=== PATIENT | female | born 1990 | race Caucasian/White ===

== ENCOUNTER 2017-02-11 00:47 | Emergency (ER) | payer MEDICAID ==
[2017-02-11] MEDS ORDERED: Ketorolac 30 MG/ML SDV IVPUSH ONE (00:50)
[2017-02-11] MEDS ORDERED: Sodium Chloride 0.9% 1,000 ML IV ONE (00:50)
[2017-02-11] MEDS ORDERED: Sodium Chloride 0.9% 10 ML Syringe FLUSH PRN (00:50)
[2017-02-11] MEDS ORDERED: Sodium Chloride 0.9% 2.5 ML Syringe FLUSH PRN (00:50)
--- NOTE | 2017-02-11 00:53 | EDM.PDOC ---
ED HPI GENERAL MEDICAL PROBLEM - General Stated Complaint: RT SIDE ABDOMINAL PAIN Time Seen by Provider: 02/11/17 00:49 Source of Information: Reports: Patient History Limitations: Reports: No Limitations - History of Present Illness INITIAL COMMENTS - FREE TEXT/NARRATIVE: HISTORY AND PHYSICAL: History of present illness: [26-year-old female with no significant past medical history including no prior abdominal problems or surgeries now presents to the emergency department complaining of right upper quadrant abdominal pain. Patient denies possibility of as she's had a recent normal. And is anticipating her next period soon with normal timing. She states she had sudden onset of right upper quadrant pain under her ribs tonight pain waxes and wanes. She has nausea but no vomiting. No fevers chills sweats or shaking chills. No right lower quadrant pain. No vaginal discharge or bleeding. She has no diarrhea and reports normal bowel bladder habits. She has had no prior workup of her gallbladder and no known history for problems thereof] Review of systems: As per history of present illness and below otherwise all systems reviewed and negative. Past medical history: As per history of present illness and as reviewed below otherwise noncontributory. Surgical history: As per history of present illness and as reviewed below otherwise noncontributory. Social history: No reported history of drug or alcohol abuse. Family history: As per history of present illness and as reviewed below otherwise noncontributory. Physical exam: HEENT: Atraumatic, normocephalic, pupils reactive, negative for conjunctival pallor or scleral icterus, mucous membranes moist, throat clear, neck supple, nontender, trachea midline. Lungs: Clear to auscultation, breath sounds equal bilaterally, chest nontender. Heart: S1S2, regular, negative for clicks, rubs, or JVD. Abdomen: Soft, nondistended, positive right upper quadrant tenderness no guarding or rebound. Negative for masses or hepatosplenomegaly. Negative for costovertebral tenderness. Normal bowel sounds Pelvis: Stable nontender. Genitourinary: Deferred. Rectal: Deferred. Extremities: Atraumatic, negative for cords or calf pain. Neurovascular unremarkable. Neuro: Awake, alert, oriented. Cranial nerves grossly unremarkable. Cerebellum unremarkable. Motor and sensory unremarkable throughout. Exam nonfocal. Diagnostics: [Ultrasound of the right upper quadrant pending as well as full labs.] CT of the abdomen and pelvis unremarkable Therapeutics: [Anti-inflammatory medication and anxiety lytic given IV with good effect] Impression: [Right upper quadrant abdominal pain] Plan: [Signs and symptoms consistent with suspected gallbladder disease. Full workup pending including ultrasound labs. Patient with clearly contributory anxiety component relieved with Ativan and pain improved with NSAIDs.] Definitive disposition and diagnosis as appropriate pending reevaluation and review of above. Right Upper Abdominal Pain Score (Numeric/FACES): 10 - Related Data Allergies Allergy/AdvReac Type Severity Reaction Status Date / Time No Known Allergies Allergy Verified 02/11/17 01:05 Home Meds: Home Meds . [No Known Home Meds] 02/11/17 [History] ED ROS GENERAL - Review of Systems Review Of Systems: See Below (History of present illness) ED EXAM, GENERAL - Physical Exam Exam: See Below (History of present illness) Course - Vital Signs Last Recorded V/S: Last Vital Signs Temp 36.4 C 02/11/17 04:40 Pulse 88 02/11/17 04:40 Resp 16 02/11/17 04:40 BP 96/55 L 02/11/17 04:40 Pulse Ox 98 02/11/17 04:40 - Orders/Labs/Meds Orders: Active Orders 24 hr Category Date Time Status Abdomen Pelvis w wo Cont [CT] Stat Exams 02/11/17 03:13 Taken Gallbladder [Abdomen Ltd] [US] Stat Exams 02/11/17 01:07 Taken Sodium Chloride 0.9% [Normal Saline] 1,000 ml Med 02/11/17 03:45 Active IV ASDIRECTED Peripheral IV Insertion Adult [OM.PC] Stat Oth 02/11/17 00:50 Ordered Medication Orders Sodium Chloride (Normal Saline) 1,000 mls @ 999 mls/hr IV ASDIRECTED OLIVA Last Admin: 02/11/17 03:51 Dose: 999 mls/hr Labs: Laboratory Tests 02/11/17 02/11/17 02/11/17 Range/Units 01:10 01:10 02:20 WBC 13.77 H (4.0-11.0) K/uL RBC 4.77 (4.30-5.90) M/uL Hgb 14.5 (12.0-16.0) g/dL Hct 42.2 (36.0-46.0) % MCV 88.5 (80.0-98.0) fL MCH 30.4 (27.0-32.0) pg MCHC 34.4 (31.0-37.0) g/dL RDW Std Deviation 38.2 (28.0-62.0) fl RDW Coeff of Grazyna 12 (11.0-15.0) % Plt Count 305 (150-400) K/uL MPV 9.30 (7.40-12.00) fL Neut % (Auto) 72.2 (48.0-80.0) % Lymph % (Auto) 17.8 (16.0-40.0) % [place] % (Auto) 9.7 (0.0-15.0) % Eos % (Auto) 0.2 (0.0-7.0) % Baso % (Auto) 0.1 (0.0-1.5) % Neut # (Auto) 9.9 H (1.4-5.7) K/uL Lymph # (Auto) 2.5 H (0.6-2.4) K/uL [place] # (Auto) 1.3 H (0.0-0.8) K/uL Eos # (Auto) 0.0 (0.0-0.7) K/uL Baso # (Auto) 0.0 (0.0-0.1) K/uL Sodium 140 (136-146) mmol/L Potassium 4.0 (3.5-5.1) mmol/L Chloride 105 (98-110) mmol/L Carbon Dioxide 24 (21-31) mmol/L BUN 10 (6.0-23.0) mg/dL Creatinine 0.8 (0.6-1.5) mg/dL Est Cr Clr Drug Dosing 89.70 mL/min Estimated GFR (MDRD) > 60.0 ml/min Glucose 113 H (60-110) mg/dL Calcium 9.5 (8.8-10.8) mg/dL Total Bilirubin 0.3 (0.1-1.5) mg/dL AST 28 (5-40) IU/L ALT 33 (8-54) IU/L Alkaline Phosphatase 67 (40-150) Total Protein 7.7 (6.0-8.0) g/dL Albumin 4.5 (3.5-5.0) g/dL Globulin 3.2 (2.0-3.5) g/dL Albumin/Globulin Ratio 1.4 (1.3-2.8) Lipase 26 (7-80) U/L Urine Color Urine Appearance Urine pH (5.0-8.0) Ur Specific [place] (1.001-1.035) Urine Protein (NEGATIVE) mg/dL Urine Glucose (UA) (NEGATIVE) mg/dL Urine Ketones (NEGATIVE) mg/dL Urine Occult Blood (NEGATIVE) Urine Nitrite (NEGATIVE) Urine Bilirubin (NEGATIVE) Urine Urobilinogen (<2.0) EU/dL Ur Leukocyte Esterase (NEGATIVE) Urine RBC (0-2/HPF) Urine WBC (0-5/HPF) Ur Epithelial Cells (NONE-FEW) Urine Bacteria (NEGATIVE) Urine Mucus (NONE-MOD) Urine HCG, Qual NEGATIVE (NEGATIVE) 02/11/17 Range/Units 02:20 WBC (4.0-11.0) K/uL RBC (4.30-5.90) M/uL Hgb (12.0-16.0) g/dL Hct (36.0-46.0) % MCV (80.0-98.0) fL MCH (27.0-32.0) pg MCHC (31.0-37.0) g/dL RDW Std Deviation (28.0-62.0) fl RDW Coeff of Grazyna (11.0-15.0) % Plt Count (150-400) K/uL MPV (7.40-12.00) fL Neut % (Auto) (48.0-80.0) % Lymph % (Auto) (16.0-40.0) % [place] % (Auto) (0.0-15.0) % Eos % (Auto) (0.0-7.0) % Baso % (Auto) (0.0-1.5) % Neut # (Auto) (1.4-5.7) K/uL Lymph # (Auto) (0.6-2.4) K/uL [place] # (Auto) (0.0-0.8) K/uL Eos # (Auto) (0.0-0.7) K/uL Baso # (Auto) (0.0-0.1) K/uL Sodium (136-146) mmol/L Potassium (3.5-5.1) mmol/L Chloride (98-110) mmol/L Carbon Dioxide (21-31) mmol/L BUN (6.0-23.0) mg/dL Creatinine (0.6-1.5) mg/dL Est Cr Clr Drug Dosing mL/min Estimated GFR (MDRD) ml/min Glucose (60-110) mg/dL Calcium (8.8-10.8) mg/dL Total Bilirubin (0.1-1.5) mg/dL AST (5-40) IU/L ALT (8-54) IU/L Alkaline Phosphatase (40-150) Total Protein (6.0-8.0) g/dL Albumin (3.5-5.0) g/dL Globulin (2.0-3.5) g/dL Albumin/Globulin Ratio (1.3-2.8) Lipase (7-80) U/L Urine Color YELLOW Urine Appearance CLEAR Urine pH 7.0 (5.0-8.0) Ur Specific [place] 1.010 (1.001-1.035) Urine Protein NEGATIVE (NEGATIVE) mg/dL Urine Glucose (UA) NEGATIVE (NEGATIVE) mg/dL Urine Ketones NEGATIVE (NEGATIVE) mg/dL Urine Occult Blood TRACE-INTACT (NEGATIVE) Urine Nitrite NEGATIVE (NEGATIVE) Urine Bilirubin NEGATIVE (NEGATIVE) Urine Urobilinogen 0.2 (<2.0) EU/dL Ur Leukocyte Esterase SMALL (NEGATIVE) Urine RBC 0-3 (0-2/HPF) Urine WBC 4-6 (0-5/HPF) Ur Epithelial Cells FEW (NONE-FEW) Urine Bacteria RARE (NEGATIVE) Urine Mucus LIGHT (NONE-MOD) Urine HCG, Qual (NEGATIVE) Meds: Medications Generic Name Dose Route Start Last Admin Trade Name Freq PRN Reason Stop Dose Admin Sodium Chloride 1,000 mls @ 999 mls/hr 02/11/17 03:45 02/11/17 03:51 Normal Saline IV 999 mls/hr ASDIRECTED OLIVA Administration Discontinued Medications Generic Name Dose Route Start Last Admin Trade Name Freq PRN Reason Stop Dose Admin Sodium Chloride 1,000 mls @ 999 mls/hr 02/11/17 00:50 02/11/17 01:20 Normal Saline IV 02/11/17 01:50 999 mls/hr .Bolus ONE Administration Iopamidol 75 ml 02/11/17 03:50 02/11/17 03:51 Isovue-370 (76%) IVPUSH 02/11/17 03:51 75 ml ONETIME STA Administration Ketorolac Tromethamine 30 mg 02/11/17 00:50 02/11/17 01:21 Toradol IVPUSH 02/11/17 00:51 30 mg ONETIME ONE Administration Lorazepam 1 mg 02/11/17 01:06 02/11/17 01:22 Ativan IVPUSH 02/11/17 01:07 1 mg ONETIME ONE Administration Sodium Chloride 2.5 ml 02/11/17 00:50 Saline Flush FLUSH ASDIRECTED PRN Keep Vein Open Sodium Chloride 10 ml 02/11/17 00:50 Saline Flush FLUSH ASDIRECTED PRN Keep Vein Open Departure - Departure Time of Disposition: 05:09 Disposition: Home, Self-Care 01 Condition: good Clinical Impression: Abdominal pain, Leukocytosis - Discharge Information Instructions: Abdominal Pain, Adult, [id number] Referrals: PCP,None [Primary Care Provider] - Clay Vanegas MD [Physician] - Additional Instructions: Your workup today did not a clear reason for your right upper quadrant abdominal pain. As you are tender were your gallbladder is, it's possible that you know the ultrasound did not visualize any stones , and your CT scan was normal, however you could still have a problem with your gallbladder and your bile collecting system. White blood cell count was also slightly elevated. He you do not need to be admitted to the hospital at this time, however it is appropriate for you to follow-up with Dr. Clay Vanegas, our surgeon on-call, for reevaluation and further workup and treatment including possible ERCP as needed to rule out occult gallbladder disease. Take Motrin and Tylenol as needed for pain and follow-up with Dr. Vanegas in his office. Return immediately for new severe or worsening symptoms, specifically for fevers and worsening abdominal pain. - My Orders Last 24 Hours: My Active Orders 02/11/17 00:50 Peripheral IV Insertion Adult [OM.PC] Stat 02/11/17 01:07 Gallbladder [Abdomen Ltd] [US] Stat 02/11/17 03:13 Abdomen Pelvis w wo Cont [CT] Stat 02/11/17 03:45 Sodium Chloride 0.9% [Normal Saline] 1,000 ml IV ASDIRECTED - Assessment/Plan Last 24 Hours: My Active Orders 02/11/17 00:50 Peripheral IV Insertion Adult [OM.PC] Stat 02/11/17 01:07 Gallbladder [Abdomen Ltd] [US] Stat 02/11/17 03:13 Abdomen Pelvis w wo Cont [CT] Stat 02/11/17 03:45 Sodium Chloride 0.9% [Normal Saline] 1,000 ml IV ASDIRECTED
[2017-02-11] MEDS ORDERED: LORazepam 2 MG/ML MDV IVPUSH ONE (01:06)
[2017-02-11 01:38] LABS: CHLORIDE,CL 105 mmol/L (98-110); SODIUM,NA 140 mmol/L (136-146)
[2017-02-11] MEDS ORDERED: Sodium Chloride 0.9% 1,000 ML IV SCH (03:45)
[2017-02-11] MEDS ORDERED: Iopamidol 755 Mg/ML 100 ML Bottle IVPUSH STA (03:50)
[2017-02-11 05:55] VITALS: BP 100/50
--- NOTE | 2017-02-11 11:16 | US ---
EXAM DATE: 02/11/17 PATIENT'S AGE: 26 Patient: KIMBERLYN LIANG Facility: [place], [place] Site . Site : 1992 Study: US Abdomen [id number]/9/2017 2:22:40 AM Ordering Physician: Thiago Moreno Final Report: INDICATION: Right upper quadrant pain. TECHNIQUE: Ultrasound abdomen limited. Sonographic images of the right upper quadrant were obtained using hyman-scale and color Doppler images. COMPARISON: None. FINDINGS: Liver: Normal in size and echotexture. No masses. No intrahepatic biliary dilatation. Gallbladder: Gallbladder is partially contracted. Positive sonographic Suazo`s sign. No shadowing gallstones or pericholecystic fluid. Common bile duct: 4 mm. Pancreas: Unremarkable. Right kidney: 10.8 cm. Normal echotexture and cortex. No masses, stones, or hydronephrosis. Vasculature: Abdominal aorta and IVC not evaluated. IMPRESSION: 1. Partially contracted gallbladder. No cholelithiasis or abnormal biliary dilatation. Positive sonographic Suazo`s sign with no evidence of abnormal gallbladder wall thickening or pericholecystic fluid. 2. No right hydronephrosis or renal calculi. Dictated by Braydon Mtz MD @ 02/11/2017 2:47:57 AM Dictated by: Braydon Mtz MD @ 02/11/2017 02:48:02 (Electronic Signature) Report Signed by Proxy. [facility] FACILITY[facility]acho
--- NOTE | 2017-02-11 11:17 | CT ---
EXAM DATE: 02/11/17 PATIENT'S AGE: 26 Patient: KIMBERLYN LIANG Facility: [place], [place] Site . Site : 1990 Study: CT Abdomen/Pelvis W/ and W/O Cont [id number] 3:54:08 AM Ordering Physician: Thiago Moreno Final Report: INDICATION: Right upper quadrant abdominal pain. TECHNIQUE: CT abdomen and pelvis acquired without and with IV contrast. Coronal and sagittal reformats were obtained. IV contrast: Isovue 370 75 mL COMPARISON: No prior CT study. Abdominal ultrasound earlier on 02/11/2017. 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 Lower chest: Unremarkable. Liver: Unremarkable. Spleen: Unremarkable. Pancreas: Unremarkable. Gallbladder and bile ducts: No radiopaque gallstones. No acute inflammatory changes in the gallbladder fossa. Bile ducts are normal in caliber. Kidneys: No renal or ureteral calculi. Symmetric renal enhancement. No hydronephrosis or suspicious mass. Adrenal glands: Unremarkable. GI tract: Unremarkable. The appendix is normal in appearance and size. Vascular: Unremarkable. Lymph nodes: Unremarkable. Miscellaneous: Unremarkable. No pneumoperitoneum is seen. No significant ascites is noted. Pelvic Organs: Unremarkable. Bones: Unremarkable for age. IMPRESSION: 1. Negative CT of the abdomen and pelvis without and with IV contrast. Normal appendix. No renal or ureteral calculi. 2. Negative CT appearance of the gallbladder. No abnormal biliary dilatation. Dictated by Braydon Mtz MD @ 02/11/2017 4:22:32 AM Dictated by: Braydon Mtz MD @ 02/11/2017 04:22:49 (Electronic Signature) Report Signed by Proxy. [facility]
== END 2017-02-11 05:26 | disposition home or self-care (01) ==
LOC: MW.ED 00:47
DX: R10.11 Right upper quadrant pain (principal)
CPT/HCPCS: 36415; 74178; 76705; 80053; 81001; 81025; 83690; 85025; 96361; 96374; 96375; 99284; J1885; J2060; J7040; Q9967

== ENCOUNTER 2017-02-13 06:30 | Emergency (ER) | payer MEDICAID ==
[2017-02-13] MEDS ORDERED: LORazepam 2 MG/ML MDV IVPUSH ONE (06:43)
[2017-02-13] MEDS ORDERED: Sodium Chloride 0.9% 1,000 ML IV SCH (06:45)
[2017-02-13] MEDS ORDERED: Morphine 2 MG/ML Syringe IVPUSH ONE (07:08)
[2017-02-13 07:11] LABS: CHLORIDE,CL 106 mmol/L (98-110); SODIUM,NA 137 mmol/L (136-146)
--- NOTE | 2017-02-13 07:20 | EDM.PDOC ---
ED HPI GENERAL MEDICAL PROBLEM - General Chief Complaint: Abdominal Pain Stated Complaint: STOMACH PAIN Time Seen by Provider: 02/13/17 06:57 Source of Information: Reports: Patient History Limitations: Reports: No Limitations - History of Present Illness INITIAL COMMENTS - FREE TEXT/NARRATIVE: History of present illness: []Patient started having right upper quadrant pain 4 days ago and was seen in the ED 2 days ago. Her pain is constant pressure and cramping that waxes and she noticed worsened after eating pizza. Patient has brothers with gallbladder disease. She denies any fevers but has chills, denies any vomiting, diarrhea. She also complains of chest pain shortness of breath on exertion and neck pain with numbness going down her right arm when this began, however has now subsided. Review of systems: As per history of present illness and below otherwise all systems reviewed and negative. Past medical history: As per history of present illness and as reviewed below otherwise noncontributory. Surgical history: As per history of present illness and as reviewed below otherwise noncontributory. Social history: No reported history of drug or alcohol abuse. Family history: As per history of present illness and as reviewed below otherwise noncontributory. Physical exam: General: Well developed, well nourished patient lays in bed continually moaning HEENT: Atraumatic, normocephalic, pupils reactive, negative for conjunctival pallor or scleral icterus, mucous membranes moist, throat clear, neck supple, tender to palpation of her trapezius muscles bilaterally, trachea midline. Patient talks with her jaw locked when she talks, however has full range of motion of her jaw on exam. Lungs: Clear to auscultation, breath sounds equal bilaterally, chest nontender. No rhonchi Heart: S1S2, regular, negative for clicks, rubs, or JVD. Abdomen: NABS, Soft, nondistended, right upper quadrant tenderness with voluntary guarding, without rebound. Negative for masses or hepatosplenomegaly. Negative for costovertebral tenderness. Pelvis: Stable nontender. Genitourinary: Deferred. Rectal: Deferred. Extremities: Atraumatic, negative for cords or calf pain. Neurovascular unremarkable. Neuro: Awake, alert, oriented. Cranial nerves II through XII unremarkable. Cerebellum unremarkable. Motor and sensory unremarkable throughout. Exam nonfocal. Diagnostics: []CBC repeated in improved from 2 days ago, chemistries normal, chest x-ray was read as normal, Therapeutics: []Patient hydrated was initially given Ativan for anxiety, morphine without relief of pain. Levsin and Pepcid alleviated all her pain and she was able to sleep while awaiting results and IV fluids. Impression: []Right upper quadrant pain unknown etiology, patient has a good history for gallbladder disease however ultrasound shows no gallstones or signs of cholecystitis that was done 2 days ago. Patient's labs were repeated and are improved today. Given patient's multiple body complaints I agree with Dr. Das that there is a component of anxiety however all bladder disease should be ruled out with further studies. Plan: []Patient has appointment with Dr. Vanegas in 2 days for further evaluation. Definitive disposition and diagnosis as appropriate pending reevaluation and review of above. 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 Musculoskeletal History: Reports: None Neurological History: Reports: None Psychiatric History: Reports: None Endocrine/Metabolic History: Reports: None Hematologic History: Reports: None Oncologic (Cancer) History: Reports: None Dermatologic History: Reports: None - Infectious Disease History Infectious Disease History: Reports: Chicken Pox - Past Surgical History Head Surgeries/Procedures: Reports: None HEENT Surgical History: Reports: None Cardiovascular Surgical History: Reports: None GI Surgical History: Reports: None Female Surgical History: Reports: Other (See Below) Other Female Surgeries/Procedures: right breast lumpectomy Social & Family History - Family History Family Medical History: Noncontributory - Tobacco Use Smoking Status *Q: Never Smoker - Caffeine Use Caffeine Use: Reports: Soda - Recreational Drug Use Recreational Drug Use: No ED ROS GENERAL - Review of Systems Review Of Systems: See Below (See history of present illness) ED EXAM, GI/ABD - Physical Exam Exam: See Below (See history of present illness) Course - Vital Signs Last Recorded V/S: Last Vital Signs Temp 36.6 C 02/13/17 06:32 Pulse 89 02/13/17 08:00 Resp 16 02/13/17 08:00 BP 105/62 02/13/17 08:00 Pulse Ox 98 02/13/17 08:00 - Orders/Labs/Meds Orders: Active Orders 24 hr Category Date Time Status Chest 2V [CR] Stat Exams 02/13/17 07:12 Taken Sodium Chloride 0.9% [Normal Saline] 1,000 ml Med 02/13/17 06:45 Active IV ASDIRECTED Medication Orders Sodium Chloride (Normal Saline) 1,000 mls @ 999 mls/hr IV ASDIRECTED OLIVA Last Admin: 02/13/17 06:49 Dose: 999 mls/hr Labs: Laboratory Tests 02/13/17 02/13/17 02/13/17 Range/Units 06:40 06:40 06:40 WBC 11.26 H (4.0-11.0) K/uL RBC 4.65 (4.30-5.90) M/uL Hgb 14.1 (12.0-16.0) g/dL Hct 41.2 (36.0-46.0) % MCV 88.6 (80.0-98.0) fL MCH 30.3 (27.0-32.0) pg MCHC 34.2 (31.0-37.0) g/dL RDW Std Deviation 39.4 (28.0-62.0) fl RDW Coeff of Grazyna 12 (11.0-15.0) % Plt Count 269 (150-400) K/uL MPV 9.30 (7.40-12.00) fL Neut % (Auto) 75.0 (48.0-80.0) % Lymph % (Auto) 16.0 (16.0-40.0) % [place] % (Auto) 8.7 (0.0-15.0) % Eos % (Auto) 0.2 (0.0-7.0) % Baso % (Auto) 0.1 (0.0-1.5) % Neut # (Auto) 8.5 H (1.4-5.7) K/uL Lymph # (Auto) 1.8 (0.6-2.4) K/uL Cam[place] # (Auto) 1.0 H (0.0-0.8) K/uL Eos # (Auto) 0.0 (0.0-0.7) K/uL Baso # (Auto) 0.0 (0.0-0.1) K/uL Nucleated RBC % 0.0 /100WBC Nucleated RBCs # 0 K/uL Sodium 137 (136-146) mmol/L Potassium 3.8 (3.5-5.1) mmol/L Chloride 106 (98-110) mmol/L Carbon Dioxide 22 (21-31) mmol/L BUN 9 (6.0-23.0) mg/dL Creatinine 0.7 (0.6-1.5) mg/dL Est Cr Clr Drug Dosing 89.01 mL/min Estimated GFR (MDRD) > 60.0 ml/min Glucose 101 (60-110) mg/dL Calcium 9.1 (8.8-10.8) mg/dL Total Bilirubin 0.6 (0.1-1.5) mg/dL AST 25 (5-40) IU/L ALT 33 (8-54) IU/L Alkaline Phosphatase 64 (40-150) Total Protein 7.4 (6.0-8.0) g/dL Albumin 4.3 (3.5-5.0) g/dL Globulin 3.1 (2.0-3.5) g/dL Albumin/Globulin Ratio 1.4 (1.3-2.8) Lipase 17 (7-80) U/L HCG, Qual NEGATIVE (NEG) Urine Color Urine Appearance Urine pH (5.0-8.0) Ur Specific [place] (1.001-1.035) Urine Protein (NEGATIVE) mg/dL Urine Glucose (UA) (NEGATIVE) mg/dL Urine Ketones (NEGATIVE) mg/dL Urine Occult Blood (NEGATIVE) Urine Nitrite (NEGATIVE) Urine Bilirubin (NEGATIVE) Urine Urobilinogen (<2.0) EU/dL Ur Leukocyte Esterase (NEGATIVE) Urine RBC (0-2/HPF) Urine WBC (0-5/HPF) Ur Epithelial Cells (NONE-FEW) Urine Bacteria (NEGATIVE) 02/13/17 Range/Units 07:54 WBC (4.0-11.0) K/uL RBC (4.30-5.90) M/uL Hgb (12.0-16.0) g/dL Hct (36.0-46.0) % MCV (80.0-98.0) fL MCH (27.0-32.0) pg MCHC (31.0-37.0) g/dL RDW Std Deviation (28.0-62.0) fl RDW Coeff of Grazyna (11.0-15.0) % Plt Count (150-400) K/uL MPV (7.40-12.00) fL Neut % (Auto) (48.0-80.0) % Lymph % (Auto) (16.0-40.0) % [place] % (Auto) (0.0-15.0) % Eos % (Auto) (0.0-7.0) % Baso % (Auto) (0.0-1.5) % Neut # (Auto) (1.4-5.7) K/uL Lymph # (Auto) (0.6-2.4) K/uL [place] # (Auto) (0.0-0.8) K/uL Eos # (Auto) (0.0-0.7) K/uL Baso # (Auto) (0.0-0.1) K/uL Nucleated RBC % /100WBC Nucleated RBCs # K/uL Sodium (136-146) mmol/L Potassium (3.5-5.1) mmol/L Chloride (98-110) mmol/L Carbon Dioxide (21-31) mmol/L BUN (6.0-23.0) mg/dL Creatinine (0.6-1.5) mg/dL Est Cr Clr Drug Dosing mL/min Estimated GFR (MDRD) ml/min Glucose (60-110) mg/dL Calcium (8.8-10.8) mg/dL Total Bilirubin (0.1-1.5) mg/dL AST (5-40) IU/L ALT (8-54) IU/L Alkaline Phosphatase (40-150) Total Protein (6.0-8.0) g/dL Albumin (3.5-5.0) g/dL Globulin (2.0-3.5) g/dL Albumin/Globulin Ratio (1.3-2.8) Lipase (7-80) U/L HCG, Qual (NEG) Urine Color YELLOW Urine Appearance SLT CLOUDY Urine pH 7.0 (5.0-8.0) Ur Specific [place] 1.010 (1.001-1.035) Urine Protein NEGATIVE (NEGATIVE) mg/dL Urine Glucose (UA) NEGATIVE (NEGATIVE) mg/dL Urine Ketones NEGATIVE (NEGATIVE) mg/dL Urine Occult Blood SMALL H (NEGATIVE) Urine Nitrite NEGATIVE (NEGATIVE) Urine Bilirubin NEGATIVE (NEGATIVE) Urine Urobilinogen 0.2 (<2.0) EU/dL Ur Leukocyte Esterase MODERATE (NEGATIVE) Urine RBC 2-4 (0-2/HPF) Urine WBC 20-25 (0-5/HPF) Ur Epithelial Cells RARE (NONE-FEW) Urine Bacteria FEW (NEGATIVE) Meds: Medications Generic Name Dose Route Start Last Admin Trade Name Freq PRN Reason Stop Dose Admin Sodium Chloride 1,000 mls @ 999 mls/hr 02/13/17 06:45 02/13/17 06:49 Normal Saline IV 999 mls/hr ASDIRECTED OLIVA Administration Discontinued Medications Generic Name Dose Route Start Last Admin Trade Name Freq PRN Reason Stop Dose Admin Famotidine 20 mg 02/13/17 08:06 02/13/17 08:26 Pepcid IVPUSH 02/13/17 08:07 20 mg ONETIME ONE Administration Hyoscyamine 0.125 mg 02/13/17 07:59 02/13/17 08:29 Hyomax-Sl SL 02/13/17 08:00 0.125 mg ONETIME ONE Administration Lorazepam 1 mg 02/13/17 06:43 02/13/17 06:49 Ativan IVPUSH 02/13/17 06:44 1 mg ONETIME ONE Administration Morphine Sulfate 2 mg 02/13/17 07:08 02/13/17 07:19 Morphine IVPUSH 02/13/17 07:09 2 mg ONETIME ONE Administration Departure - Departure Time of Disposition: 08:57 Disposition: Home, Self-Care 01 Condition: good Clinical Impression: Abdominal pain Qualifiers: Abdominal location: right upper quadrant Qualified Code(s): R10.11 - Right upper quadrant pain - Discharge Information Prescriptions: Hyoscyamine Sulfate [Levsin] 0.125 mg PO TID PRN #20 tablet PRN Reason: Pain Referrals: PCP,None [Primary Care Provider] - Forms: ED Department Discharge Additional Instructions: The following information is given to patients seen in the emergency department who are being discharged to home. This information is to outline your options for follow-up care. We provide all patients seen in our emergency department with a follow-up referral. The need for follow-up, as well as the timing and circumstances, are variable depending upon the specifics of your emergency department visit. If you don't have a primary care physician on staff, we will provide you with a referral. We always advise you to contact your personal physician following an emergency department visit to inform them of the circumstance of the visit and for follow-up with them and/or the need for any referrals to a consulting specialist. The emergency department will also refer you to a specialist when appropriate. This referral assures that you have the opportunity for follow-up care with a specialist. All of these measure are taken in an effort to provide you with optimal care, which includes your follow-up. Under all circumstances we always encourage you to contact your private physician who remains a resource for coordinating your care. When calling for follow-up care, please make the office aware that this follow-up is from your recent emergency room visit. If for any reason you are refused follow-up, please contact the [facility] Emergency Department at and asked to speak to the emergency department charge nurse. Take Levsin for pain as directed. Avoid fatty foods. Return if any fevers occur. Follow-up with Dr. Vanegas as scheduled. [facility] - General Surgery Professional Building [address] [place] [address], [address] [place] [address] - My Orders Last 24 Hours: My Active Orders 02/13/17 07:12 Chest 2V [CR] Stat - Assessment/Plan Last 24 Hours: My Active Orders 02/13/17 07:12 Chest 2V [CR] Stat
[2017-02-13] MEDS ORDERED: Hyoscyamine 0.125 MG Tab.SL SL ONE (07:59)
[2017-02-13] MEDS ORDERED: Famotidine 20 MG/2 ML SDV IVPUSH ONE (08:06)
[2017-02-13 09:49] VITALS: BP 102/60
--- NOTE | 2017-02-14 11:13 | CR ---
EXAM DATE: 02/13/17 PATIENT'S AGE: 26 Patient: KIMBERLYN LIANG Facility: [place], [place] Site . Site : 1990 Study: XRay Chest [id number]/11/2017 7:39:22 AM Ordering Physician: Jimi Augustin Final Report: INDICATION: RUQ Pain, SOB INDICATION: Shortness of breath. Right upper quadrant abdominal pain. TECHNIQUE: Chest 2 views. COMPARISON: None FINDINGS: Cardiovascular and mediastinum: Heart size and vasculature are normal in caliber and appearance. Mediastinum is within normal limits. Lungs and pleural spaces: Lungs are clear. No sign of infiltrate or mass. No sign of pleural effusion. No pneumothorax. Bones and soft tissues: No significant findings. IMPRESSION: Lungs are clear. Dictated by Valdez Guo MD @ 02/13/2017 7:43:12 AM Dictated by: Valdez Guo MD @ 02/13/2017 07:43:19 (Electronic Signature) Report Signed by Proxy. TOMASZ
== END 2017-02-13 09:40 | disposition home or self-care (01) ==
LOC: MW.ED 06:30
DX: R10.11 Right upper quadrant pain (principal); Z98.890 Other specified postprocedural states
CPT/HCPCS: 71020; 80053; 81001; 83690; 84703; 85025; 96361; 96374; 96375; 99284; A9270; J2060; J2270; J7040

== ENCOUNTER 2017-03-09 08:07 | Day surgery (SDC) | payer MEDICAID ==
[~2017-03-09 08:07] MED LIST: Bupivacaine 0.5% 30 ML SDV ONE; Dexamethasone 4 MG/ML 5 ML MDV ONE; HYDROmorphone 2 MG/ML Syringe ONE; Lactated Ringers 1,000 ML IV SCH; Lidocaine 2% 5 ML SDV ONE; Midazolam 1 MG/ML 2 ML SDV ONE; Ondansetron 4 MG/2 ML SDV ONE; Propofol 200 MG/20 ML SDV ONE; Rocuronium 10 MG/ML 10 ML Syringe ONE; Scopolamine 1.5 MG Transdermal Patch TOP ONE; Sodium Chloride 0.9% 10 ML Syringe FLUSH PRN; Sodium Chloride 0.9% 2.5 ML Syringe FLUSH PRN; ceFAZolin 2 GM in Premix Bag 1 BAG IV ONE; fentaNYL 250 MCG/5 ML SDV ONE
--- NOTE | 2017-03-09 08:37 | PCM.PREANE ---
Preanesthetic Assessment - Anesthesia/Transfusion/Family Hx Anesthesia History: Prior Anesthesia Without Reaction Family History of Anesthesia Reaction: No Transfusion History: No Prior Transfusion(s) - Review of Systems General: No Symptoms Pulmonary: No Symptoms Cardiovascular: No Symptoms Gastrointestinal: No symptoms Neurological: No Symptoms Other: Reports: None - Physical Assessment NPO Status Date: 03/08/17 Height: 1.52 m Weight: 60.781 kg ASA Class: 1 Mental Status: Alert & Oriented x3 Airway Class: Mallampati = 1 Dentition: Reports: Normal Dentition ROM/Head Extension: Full Lungs: Clear to auscultation, Normal respiratory effort Cardiovascular: Regular Rate, Regular Rhythm - Lab Values: Laboratory Last Values Urine HCG, Qual NEGATIVE (NEGATIVE) 03/09/17 08:13 - Allergies Allergies/Adverse Reactions: Allergies Allergy/AdvReac Type Severity Reaction Status Date / Time No Known Allergies Allergy Verified 02/13/17 06:32 - Anesthesia Plan Pre-Op Medication Ordered: Other (scop) - Acknowledgements Anesthesia Type Planned: General Anesthesia Pt an Appropriate Candidate for the Planned Anesthesia: Yes Alternatives and Risks of Anesthesia Discussed w Pt/Guardian: Yes Pt/Guardian Understands and Agrees with Anesthesia Plan: Yes PreAnesthesia Questionnaire - Past Health History Medical/Surgical History: Denies Medical/Surgical History HEENT History: Reports: None Cardiovascular History: Reports: None Respiratory History: Reports: None Gastrointestinal History: Reports: Cholelithiasis, Other (See Below) Other Gastrointestinal History: RUQ pain Genitourinary History: Reports: None 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: Musculoskeletal History: Reports: None Neurological History: Reports: Migraines Psychiatric History: Reports: Anxiety Endocrine/Metabolic History: Reports: None Hematologic History: Reports: None Oncologic (Cancer) History: Reports: None Dermatologic History: Reports: None - Infectious Disease History Infectious Disease History: Reports: Chicken Pox - Past Surgical History Head Surgeries/Procedures: Reports: None HEENT Surgical History: Reports: Tonsillectomy Female Surgical History: Reports: Breast Biopsy - SUBSTANCE USE Smoking Status *Q: Never Smoker Recreational Drug Use History: No - HOME MEDS Home Medications: Home Meds Omeprazole 20 mg PO BID 03/03/17 [History] oxyCODONE HCl/Acetaminophen [Percocet 5-325 mg Tablet] 1 - 2 tab PO ASDIRECTED PRN 03/03/17 [History] - CURRENT (IN HOUSE) MEDS Current Meds: Current Medications Lactated Ringer's (Ringers, Lactated) 1,000 mls @ 125 mls/hr IV ASDIRECTED OLIVA Sodium Chloride (Saline Flush) 10 ml FLUSH ASDIRECTED PRN PRN Reason: Keep Vein Open Sodium Chloride (Saline Flush) 2.5 ml FLUSH ASDIRECTED PRN PRN Reason: Keep Vein Open Discontinued Medications Bupivacaine HCl (Marcaine 0.5%) Confirm Administered Dose 30 ml .ROUTE .STK-MED ONE Stop: 03/09/17 07:14 Dexamethasone (Dexamethasone) Confirm Administered Dose 20 mg .ROUTE .STK-MED ONE Stop: 03/09/17 08:01 Fentanyl (Sublimaze) Confirm Administered Dose 250 mcg .ROUTE .STK-MED ONE Stop: 03/09/17 08:02 Hydromorphone HCl (Dilaudid) Confirm Administered Dose 2 mg .ROUTE .STK-MED ONE Stop: 03/09/17 08:01 Cefazolin Sodium/Dextrose 2 gm (/ Premix) 50 mls @ 100 mls/hr IV ONETIME ONE Stop: 03/07/17 08:21 Lidocaine (Xylocaine-Mpf 2%) Confirm Administered Dose 5 ml .ROUTE .STK-MED ONE Stop: 03/09/17 08:02 Midazolam HCl (Versed 1 Mg/Ml) Confirm Administered Dose 2 mg .ROUTE .STK-MED ONE Stop: 03/09/17 08:01 Ondansetron HCl (Zofran) Confirm Administered Dose 4 mg .ROUTE .STK-MED ONE Stop: 03/09/17 08:01 Propofol (Diprivan 20 Ml) Confirm Administered Dose 200 mg .ROUTE .STK-MED ONE Stop: 03/09/17 08:01 Rocuronium Ripley (Zemuron) Confirm Administered Dose 100 mg .ROUTE .STK-MED ONE Stop: 03/09/17 08:01 Scopolamine (Transderm-Scop) 1.5 mg TOP ONETIME ONE Stop: 03/09/17 06:36
--- NOTE | 2017-03-09 08:38 | PCM.OPNOTE ---
[id number] 03/09/17 Operative Procedure(s): laparoscopic cholecystectomy, removal of perihepatic adhesions Findings: Normal Appearing gallbladder, multiple perihepatic adhesions Pre Op Diagnosis: Biliary Dyskinesia Post-Op Diagnosis: 1. Biliary Dyskinesia. 2. Wilbert-Ricardo Skinny Syndrome Anesthesia Technique: General ET tube Primary Surgeon: Loretta Vitale EBL in mLs: 10 Complications: none Condition: Good <Loretta Vitale - Last Filed: 03/09/17 10:56> - General Post-Op/Procedure Note Operative Procedure(s): hepatic capsular adhesions concerning for Wilbert Ricardo Skinny Fluid Replacement, Intraop: 1,300 Output, Urine Amount: 20 Free Text/Narrative:: Intake & Output 03/08/17 03/09/17 03/09/17 22:59 06:59 14:59 Output Total 20 Balance -20
[2017-03-09] MEDS ORDERED: Neostigmine Methylsulfate 1 MG/ML 5 ML Syringe ONE (10:11)
[2017-03-09] MEDS ORDERED: Ketorolac 30 MG/ML SDV ONE (10:16)
[2017-03-09] MEDS ORDERED: Acetaminophen/oxyCODONE 325-5 MG Tab PO ONE ×2 (10:47→13:57)
--- NOTE | 2017-03-09 11:39 | PCM.POSTAN ---
POST ANESTHESIA ASSESSMENT - MENTAL STATUS Mental Status: alert, oriented - RESPIRATORY Respiratory Status: respiratory rate WNL, airway patent, O2 saturation stable - CARDIOVASCULAR CV Status: pulse rate WNL, blood pressure stable - GASTROINTESTINAL GI Status: no symptoms - PAIN Pain Score: 2 - POST OP HYDRATION Hydration Status: adequate & stable
[2017-03-09 15:02] VITALS: BP 104/62
--- NOTE | 2017-03-09 21:20 | OR ---
SURGEON: BRE MORRISON MD DATE OF PROCEDURE: 03/09/2017 PREOPERATIVE DIAGNOSIS: Biliary dyskinesia. POSTOPERATIVE DIAGNOSES: Biliary dyskinesia, Gjxa-Kyny-Yiluom syndrome. PROCEDURE PERFORMED: Laparoscopic cholecystectomy and lysis of perihepatic lesions. INSTRUCTOR PSYCHIATRIC AIDE: Dr. Wes Ruffin, vice president diversity. ANESTHESIA: General endotracheal anesthesia. FLUIDS: 1300 mL crystalloid. URINE OUTPUT: 20 mL. ESTIMATED BLOOD LOSS: 10 mL. FINDINGS: Perihepatic capsular adhesions consistent with Wilbert Ricardo Skinny syndrome and normal-appearing gallbladder. COMPLICATIONS: None. INDICATIONS: The patient is a 26-year-old female, who presents with right upper quadrant pain. Workup was completed including a HIDA scan that showed 0% ejection fraction. Decision was made to proceed to the operating room to perform a cholecystectomy. We discussed the laparoscopic and open approaches. Should I be unable to perform this safely laparoscopically, we will be converting to open. The risks were discussed including bleeding, infection, or damage to surrounding structures. The patient verbalized understanding and wishes to proceed. PROCEDURE IN DETAIL: The patient was brought to the operating room and placed on the OR table in supine position. A time-out was completed verifying the patient's name, age, date of , allergies, and procedure to be performed. General endotracheal anesthesia was induced. The left arm was tucked to the patient's side and a Snider catheter placed. The abdomen was prepped and draped in usual standard fashion. I anesthetized the infraumbilical fold with 0.5% Marcaine plain. A 15 blade was then used to incise the infraumbilical fold. S-retractors were used to dissect bluntly down to the abdominal fascia. The fascia was grasped with 2 Joseph's and incised with the Zamora scissors. A 12 mm blunt- tipped trocar was then inserted into the abdomen and insufflation achieved. A 5 mm 30-degree scope was inserted into the abdomen. I inspected the area underneath my incision. No damage to surrounding structures was noted. I then placed 3 more 5 mm trocars under direct visualization in the following locations; one in the epigastric area, one in right subcostal margin along the midclavicular line, and one in the right flank. She was placed into reverse Trendelenburg position and airplaned slightly to the left. I noted there to be pericapsular adhesions from the liver to the abdominal wall consistent with Wilbert Ricardo Skinny syndrome. The patient has a remote history of chlamydia, which was successfully treated. I took these adhesions down with hook cautery to allow good mobilization of the liver for my procedure as well as to hopefully help with any discomfort that the adhesions were causing. I then grasped the dome of the gallbladder with an atraumatic grasper through my right lateral flank port. The gallbladder was then elevated above the dome of the liver. This maneuver exposed the infundibulum. The peritoneum overlying the infundibulum was incised with hook cautery. Using hook cautery, blunt dissection and suction, I cleared off the cystic duct artery and the proximal 1/3 of the cystic plate. This allowed me to achieve my critical view. The cystic duct and artery were doubly clipped and ligated and the gallbladder removed from the gallbladder fossa using electrocautery. I made a small rent in the gallbladder itself and bile was spilled into the abdomen. The gallbladder was removed from the liver bed, placed in an EndoCatch bag and removed through the infraumbilical port site. My 12 mm port was then placed back into the abdomen and I reinspected my surgical area. No bleeding was noted and my clips appeared to be in good position. I irrigated the abdomen copiously until the normal saline irrigant ran clear. The trocars were removed under direct visualization and the abdomen allowed to desufflate. I then closed my infraumbilical port site using 0 Vicryl sutures within the fascia. The skin incision was closed with interrupted 3-0 Vicryl within the subcutaneous fat and a running 4-0 Monocryl suture within the subcuticular space. The 5 mm trocar sites were closed with interrupted 4-0 Monocryls. Steri-Strips and sterile dressings were applied. All counts were complete and correct at the end the case. The patient tolerated procedure well with no immediate complications. TIMO NELSON /[id number] TOMASZ
== END 2017-03-09 15:16 | disposition home or self-care (01) ==
LOC: MW.SDS 08:07
PROVIDERS: ATTEND Surgery
DX: K81.1 Chronic cholecystitis (principal); F41.9 Anxiety disorder, unspecified; Z79.899 Other long term (current) drug therapy; Z98.890 Other specified postprocedural states
CPT/HCPCS: 47562; 81025; A9270; J0690; J1100; J1170; J1885; J2250; J2405; J3010; J7120; 00790; 88304; J2704

== ENCOUNTER 2017-06-09 17:14 | Emergency (ER) | payer MEDICAID ==
--- NOTE | 2017-06-09 17:46 | EDM.PDOC ---
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 Patient has seen Leslie Rosa approximately 2 weeks ago when she found out she was , at that time they did routine lab work and is scheduled to follow-up with her in the next couple weeks. She woke up this morning with mild low pelvic cramping and then noticed light spotting denies any recent sexual activity. Denies any dysuria. Has not had a confirmed IUP. Reports that her bowel movements are regular although firm. 5, para 3, A1 - patient reports that last year she did have a miscarriage in the first trimester. Last menstrual period April 19, 2017 Review of systems: As per history of present illness and below otherwise all systems reviewed and negative. Past medical history: As per history of present illness and as reviewed below otherwise noncontributory. Surgical history: As per history of present illness and as reviewed below otherwise noncontributory. Social history: No reported history of drug or alcohol abuse. Family history: As per history of present illness and as reviewed below otherwise noncontributory. Physical exam: Gen.: Well-developed and well-nourished 27-year-old female. Able to speak in full sentences without shortness of breath. Alert and oriented. HEENT: Atraumatic, normocephalic, pupils reactive, negative for conjunctival pallor or scleral icterus, mucous membranes moist, throat clear, neck supple, nontender, trachea midline. Lungs: Clear to auscultation, breath sounds equal bilaterally, chest nontender. Heart: S1S2, regular, negative for clicks, rubs, or JVD. Abdomen: Soft, nondistended, tenderness to the suprapubic area with palpation. Negative for masses or hepatosplenomegaly. Negative for costovertebral tenderness. Pelvis: Stable nontender. Genitourinary: Deferred. Rectal: Deferred. Extremities: Atraumatic, negative for cords or calf pain. Neurovascular unremarkable. Neuro: Awake, alert, oriented. Cranial nerves II through XII unremarkable. Cerebellum unremarkable. Motor and sensory unremarkable throughout. Exam nonfocal. Ultrasound shows a single live intrauterine estimated 8 weeks and 3 days. Did share this with the patient. Advised her for strict pelvic rest and this was explained. Patient states she does have an appointment with Leslie Rosa on the . Discussed with patient if she has worsening cramping or heavier bleeding she should return to the emergency room or try to get with Shelley sooner. Encourage patient to continue her vitamin. She may take Tylenol as needed for the discomfort. Patient is agreeable to plan of care. Denies any further questions at this time. Diagnostics: CBC, CMP, AB/RH, Quantitative HCG, Ultrasound Therapeutics: [] Impression: Vaginal bleeding in first trimester Plan: 1. Strict pelvic rest as we discussed. 2. Need take Tylenol as directed for pelvic cramping. 3. Follow-up with your COOLER TENDER as already arranged. Return to the ED as needed and as discussed. Definitive disposition and diagnosis as appropriate pending reevaluation and review of above. Onset: Today Duration: Hour(s): Location: Reports: Abdomen abdomen Pain Score (Numeric/FACES): 5 - Related Data Allergies Allergy/AdvReac Type Severity Reaction Status Date / Time No Known Allergies Allergy Verified 06/09/17 17:28 Home Meds: Home Meds Ondansetron [Zofran] 4 mg PO Q8H PRN 06/09/17 [History] Past Medical History - Past Health History Medical/Surgical History: Denies Medical/Surgical History HEENT History: Reports: None Cardiovascular History: Reports: None Respiratory History: Reports: None Gastrointestinal History: Reports: Cholelithiasis, Other (See Below) Other Gastrointestinal History: RUQ pain Genitourinary History: Reports: None COOLER TENDER History: Reports: Musculoskeletal History: Reports: None Neurological History: Reports: Migraines Psychiatric History: Reports: Anxiety Endocrine/Metabolic History: Reports: None Hematologic History: Reports: None Oncologic (Cancer) History: Reports: None Dermatologic History: Reports: None - Infectious Disease History Infectious Disease History: Reports: Chicken Pox - Past Surgical History Head Surgeries/Procedures: Reports: None HEENT Surgical History: Reports: Tonsillectomy GI Surgical History: Reports: Cholecystectomy Female Surgical History: Reports: Breast Biopsy Social & Family History - Family History Family Medical History: Noncontributory - Tobacco Use Smoking Status *Q: Never Smoker - Caffeine Use Caffeine Use: Reports: Coffee, Soda - Recreational Drug Use Recreational Drug Use: No ED ROS GENERAL - Review of Systems Review Of Systems: ROS reveals no pertinent complaints other than HPI. ED EXAM - Physical Exam Exam: See Below (See dictation) Course - Vital Signs Last Recorded V/S: Last Vital Signs Temp 36.8 C 06/09/17 17:14 Pulse 84 06/09/17 17:14 Resp 18 06/09/17 17:14 BP 118/77 06/09/17 17:14 Pulse Ox 96 06/09/17 17:14 - Orders/Labs/Meds Orders: Active Orders 24 hr Category Date Time Status OB Transvaginal [US] Stat Exams 06/09/17 17:42 Taken Labs: Laboratory Tests 06/09/17 06/09/17 06/09/17 Range/Units 17:35 17:41 17:41 WBC 10.51 (4.0-11.0) K/uL RBC 5.10 (4.30-5.90) M/uL Hgb 15.3 (12.0-16.0) g/dL Hct 43.4 (36.0-46.0) % MCV 85.1 (80.0-98.0) fL MCH 30.0 (27.0-32.0) pg MCHC 35.3 (31.0-37.0) g/dL RDW Std Deviation 39.2 (28.0-62.0) fl RDW Coeff of Graz[place] 13 (11.0-15.0) % Plt Count 270 (150-400) K/uL MPV 9.30 (7.40-12.00) fL Neut % (Auto) 70.9 (48.0-80.0) % Lymph % (Auto) 22.8 (16.0-40.0) % [place] % (Auto) 5.8 (0.0-15.0) % Eos % (Auto) 0.3 (0.0-7.0) % Baso % (Auto) 0.2 (0.0-1.5) % Neut # (Auto) 7.5 H (1.4-5.7) K/uL Lymph # (Auto) 2.4 (0.6-2.4) K/uL [place] # (Auto) 0.6 (0.0-0.8) K/uL Eos # (Auto) 0.0 (0.0-0.7) K/uL Baso # (Auto) 0.0 (0.0-0.1) K/uL Nucleated RBC % 0.0 /100WBC Nucleated RBCs # 0 K/uL Sodium 136 (136-146) mmol/L Potassium 3.5 (3.5-5.1) mmol/L Chloride 102 (98-110) mmol/L Carbon Dioxide 25 (21-31) mmol/L BUN 7 (6.0-23.0) mg/dL Creatinine 0.6 (0.6-1.5) mg/dL Est Cr Clr Drug Dosing 102.95 mL/min Estimated GFR (MDRD) > 60.0 ml/min Glucose 87 (60-110) mg/dL Calcium 9.8 (8.8-10.8) mg/dL Total Bilirubin 0.3 (0.1-1.5) mg/dL AST 16 (5-40) IU/L ALT 26 (8-54) IU/L Alkaline Phosphatase 68 (40-150) Total Protein 7.9 (6.0-8.0) g/dL Albumin 4.4 (3.5-5.0) g/dL Globulin 3.5 (2.0-3.5) g/dL Albumin/Globulin Ratio 1.3 (1.3-2.8) HCG, Quant 486715.4 mIU/mL Urine Color YELLOW Urine Appearance CLEAR Urine pH 7.0 (5.0-8.0) Ur Specific [place] 1.010 (1.001-1.035) Urine Protein 30 (NEGATIVE) mg/dL Urine Glucose (UA) NEGATIVE (NEGATIVE) mg/dL Urine Ketones NEGATIVE (NEGATIVE) mg/dL Urine Occult Blood TRACE-LYSED (NEGATIVE) Urine Nitrite NEGATIVE (NEGATIVE) Urine Bilirubin NEGATIVE (NEGATIVE) Urine Urobilinogen 0.2 (<2.0) EU/dL Ur Leukocyte Esterase TRACE (NEGATIVE) Urine RBC 0-2 (0-2/HPF) Urine WBC 0-2 (0-5/HPF) Ur Epithelial Cells MODERATE (NONE-FEW) Amorphous Sediment FEW (NEGATIVE) Urine Bacteria FEW (NEGATIVE) Blood Type 06/09/17 Range/Units 17:41 WBC (4.0-11.0) K/uL RBC (4.30-5.90) M/uL Hgb (12.0-16.0) g/dL Hct (36.0-46.0) % MCV (80.0-98.0) fL MCH (27.0-32.0) pg MCHC (31.0-37.0) g/dL RDW Std Deviation (28.0-62.0) fl RDW Coeff of G[place] (11.0-15.0) % Plt Count (150-400) K/uL MPV (7.40-12.00) fL Neut % (Auto) (48.0-80.0) % Lymph % (Auto) (16.0-40.0) % [place] % (Auto) (0.0-15.0) % Eos % (Auto) (0.0-7.0) % Baso % (Auto) (0.0-1.5) % Neut # (Auto) (1.4-5.7) K/uL Lymph # (Auto) (0.6-2.4) K/uL [place] # (Auto) (0.0-0.8) K/uL Eos # (Auto) (0.0-0.7) K/uL Baso # (Auto) (0.0-0.1) K/uL Nucleated RBC % /100WBC Nucleated RBCs # K/uL Sodium (136-146) mmol/L Potassium (3.5-5.1) mmol/L Chloride (98-110) mmol/L Carbon Dioxide (21-31) mmol/L BUN (6.0-23.0) mg/dL Creatinine (0.6-1.5) mg/dL Est Cr Clr Drug Dosing mL/min Estimated GFR (MDRD) ml/min Glucose (60-110) mg/dL Calcium (8.8-10.8) mg/dL Total Bilirubin (0.1-1.5) mg/dL AST (5-40) IU/L ALT (8-54) IU/L Alkaline Phosphatase (40-150) Total Protein (6.0-8.0) g/dL Albumin (3.5-5.0) g/dL Globulin (2.0-3.5) g/dL Albumin/Globulin Ratio (1.3-2.8) HCG, Quant mIU/mL Urine Color Urine Appearance Urine pH (5.0-8.0) Ur Specific [place] (1.001-1.035) Urine Protein (NEGATIVE) mg/dL Urine Glucose (UA) (NEGATIVE) mg/dL Urine Ketones (NEGATIVE) mg/dL Urine Occult Blood (NEGATIVE) Urine Nitrite (NEGATIVE) Urine Bilirubin (NEGATIVE) Urine Urobilinogen (<2.0) EU/dL Ur Leukocyte Esterase (NEGATIVE) Urine RBC (0-2/HPF) Urine WBC (0-5/HPF) Ur Epithelial Cells (NONE-FEW) Amorphous Sediment (NEGATIVE) Urine Bacteria (NEGATIVE) Blood Type B POSITIVE Departure - Departure Time of Disposition: 19:15 Disposition: Home, Self-Care 01 Clinical Impression: Vaginal bleeding in - Discharge Information Referrals: PCP,None [Primary Care Provider] - Forms: ED Department Discharge Additional Instructions: My general discharge The following information is given to patients seen in the emergency department who are being discharged to home. This information is to outline your options for follow-up care. We provide all patients seen in our emergency department with a follow-up referral. The need for follow-up, as well as the timing and circumstances, are variable depending upon the specifics of your emergency department visit. If you don't have a primary care physician on staff, we will provide you with a referral. We always advise you to contact your personal physician following an emergency department visit to inform them of the circumstance of the visit and for follow-up with them and/or the need for any referrals to a consulting specialist. The emergency department will also refer you to a specialist when appropriate. This referral assures that you have the opportunity for follow-up care with a specialist. All of these measure are taken in an effort to provide you with optimal care, which includes your follow-up. Under all circumstances we always encourage you to contact your private physician who remains a resource for coordinating your care. When calling for follow-up care, please make the office aware that this follow-up is from your recent emergency room visit. If for any reason you are refused follow-up, please contact the [facility] Emergency Department at and asked to speak to the emergency department charge nurse. [facility] - Women's [facility] [address] [place] [id number] 1. Strict pelvic rest as we discussed. 2. Need take Tylenol as directed for pelvic cramping. 3. Follow-up with your COOLER TENDER as already arranged. Return to the ED as needed and as discussed. - My Orders Last 24 Hours: My Active Orders 06/09/17 17:42 OB Transvaginal [US] Stat - Assessment/Plan Last 24 Hours: My Active Orders 06/09/17 17:42 OB Transvaginal [US] Stat
[2017-06-09 18:10] LABS: CHLORIDE,CL 102 mmol/L (98-110); SODIUM,NA 136 mmol/L (136-146)
[2017-06-09 19:34] VITALS: BP 98/76
--- NOTE | 2017-06-10 12:37 | US ---
EXAM DATE: 06/09/17 PATIENT'S AGE: 27 Patient: KIMBERLYN LIANG Facility: [place], [place] Site . Site : 1990 Study: US OB Pelvis [id number]/[id number] 6:52:50 PM Ordering Physician: Doctor Avitia Final Report: INDICATION: . Bleeding and cramping. TECHNIQUE: Ultrasound OB pelvis transabdominal and transvaginal. Real-time hyman-scale imaging of the pelvis was performed. COMPARISON: None available FINDINGS: The uterus is retroverted, measuring 7.6 x 5.7 x 6.9 centimeters. An intrauterine gestational sac is seen, containing a pole with a crown-rump length of 1.8 centimeters, corresponding to 8 weeks and 3 days. A yolk sac is seen, measuring 3 millimeters. There is cardiac activity with a heart rate of 160 BPM. A subchorionic hemorrhage is seen, measuring 0.7 x 0.5 centimeters. There is apparent small fluid in the endocervical canal. The right ovary is not visualized. The left ovary measures 1.9 x 1.4 x 2.4 centimeters. Arterial and venous left ovarian Doppler flow is documented. No significant free fluid is seen. IMPRESSION: A single live intrauterine gestation at 8 weeks and 3 days by crown-rump length. A subchorionic hemorrhage seen. Recommend followup. Nonvisualization of the right ovary. Dictated by uLl Mata MD @ 06/09/2017 7:00:46 PM Dictated by: Lul Mata MD @ 06/09/2017 19:00:51 (Electronic Signature) Report Signed by Proxy. TOMASZ
== END 2017-06-09 19:30 | disposition home or self-care (01) ==
LOC: MW.ED 17:14
DX: O20.9 Hemorrhage in early pregnancy, unspecified (principal); Z3A.08 8 weeks gestation of pregnancy
CPT/HCPCS: 36415; 76817; 76817-26; 80053; 81001; 84702; 85025; 86900; 86901; 99283; 99284-25

== ENCOUNTER 2020-12-09 18:41 | Emergency (ER) | payer MEDICAID ==
[2020-12-09] MEDS ORDERED: Mupirocin Oint 22 GM Tube TOP ONE (19:15)
[2020-12-09] MEDS ORDERED: Bupivacaine 0.5% 10 ML SDV INJECT ONE (19:15)
--- NOTE | 2020-12-09 19:31 | EDM.PDOC ---
ED HPI GENERAL MEDICAL PROBLEM - General Chief Complaint: Laceration Stated Complaint: RT THUMB FINGERNAIL RIPPED OFF Time Seen by Provider: 12/09/20 18:41 Source of Information: Reports: Patient History Limitations: Reports: No Limitations - History of Present Illness INITIAL COMMENTS - FREE TEXT/NARRATIVE: HISTORY AND PHYSICAL: History of present illness: Patient is a 30-year-old female who presents to the ED today with concern of right hand and thumb nail avulsion that occurred late last night. Patient states that she went to shut the door of the car which caught the tip of an acrylic nail and ripped off the nail. Patient denies any crush injury or injury to the finger itself. Patient states that she had acrylic nails on that were approximately 2 inches long themselves and states that the end of the acrylic caught the door and when she shut the door her entire nail went with it. Patient states that she is up-to-date on her tetanus and just had this updated recently. Patient states that she is here because she came to the ER to help with the pain of the nail Patient denies fever, chills, chest pain, shortness of breath, or cough. Denies headache, neck stiff ness, change in vision, syncope, or near syncope. Denies nausea, vomiting, abdominal pain, diarrhea, constipation, or dysuria. Has not noted any blood in urine or stool. Patient has been eating and drinking appropriately. Review of systems: As per history of present illness and below otherwise all systems reviewed and negative. Past medical history: As per history of present illness and as reviewed below otherwise noncontributory. Surgical history: As per history of present illness and as reviewed below otherwise noncontributory. Social history: See social history for further information Family history: As per history of present illness and as reviewed below otherwise noncontributory. Physical exam: General: Patient is alert, oriented, and in no acute distress. Patient sitting comfortably on exam table. Vitals stable and reviewed by me. HEENT: Atraumatic, normocephalic, pupils equal and reactive bilaterally, negative for conjunctival pallor or scleral icterus, mucous membranes moist, TMs normal bilaterally, throat clear, neck supple, nontender, trachea midline. No drooling or trismus noted. No meningeal signs. No hot potato voice noted. Lungs: Clear to auscultation, breath sounds equal bilaterally, chest nontender. Heart: S1S2, regular rate and rhythm without overt murmur Abdomen: Soft, nondistended, nontender. Negative for masses or hepatosplenomegaly. Negative for costovertebral tenderness. Pelvis: Stable nontender. Genitourinary: Deferred. Rectal: Deferred. Skin: Intact, warm, dry. No lesions or rashes noted. Extremities: The right hand thumb nail is completely avulsed with no underlying laceration, there is a small amount of honey crusting noted of the avulsed nail. Patient has full range of motion of the digit without pain or difficulty. Intact sensation to light and deep touch of the right upper extremity. Radial pulses grossly intact of the right upper extremity with capillary refill less than 2 seconds. Otherwise, atraumatic, negative for cords or calf pain. Neurovascular unremarkable. Neuro: Awake, alert, oriented. Cranial nerves II through XII unremarkable. Cerebellum unremarkable. Motor and sensory unremarkable throughout. Exam nonf ocal. Notes: On exam, patient has a completely avulsed nail of the right hand thumb without laceration. She denies any crush injury or trauma to the finger itself and states that she did have a 2 inch acrylic nail which caught the door frame and ripped it off. Patient is concerned of possible early infection as there has been some honey crusting noted to the nailbed. Will prescribe patient Bactroban and discussed sterile Bactroban dressings with patient. Strict return precautions thoroughly discussed with patient. Discussed importance for follow- up with a primary care provider. Voices understanding and is agreeable to plan of care. Denies any further questions or concerns at this time. Diagnostics: None Therapeutics: Digital block (Lidocaine / Bupivacaine), Bacitracin sterile dressing placed by nursing staff Prescription: Bactroban Impression: Nail avulsion, right, thumb Plan: 1. Keep the area clean and dry. Continue to monitor for signs of infection as discussed. Apply sterile dressing with medication for the next 24 hours as discussed. 2. Tylenol and/or ibuprofen as directed and as needed for pain management and discomfort. 3. Please follow-up with your primary care provider as discussed. Return to the ED as needed and as discussed. Definitive disposition and diagnosis as appropriate pending reevaluation and review of above. right thumb Pain Score (Numeric/FACES): 8 - Related Data Allergies Allergy/AdvReac Type Severity Reaction Status Date / Time No Known Allergies Allergy Verified 12/09/20 18:58 Home Meds: Home Meds Ondansetron [Zofran] 4 mg PO Q8H PRN 06/09/17 [History] Mupirocin Oint [Bactroban Oint] 22 gm TOP BID 1 Days #1 tube 12/09/20 [Rx] Past Medical History - Past Health History Medical/Surgical History: Denies Medical/Surgical History HEENT History: Reports: None Cardiovascular History: Reports: None Respiratory History: Reports: None Gastrointestinal History: Reports: Cholelithiasis, Other (See Below) Other Gastrointestinal History: RUQ pain Genitourinary History: Reports: None 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: Musculoskeletal History: Reports: None Neurological History: Reports: Migraines Psychiatric History: Reports: Anxiety Endocrine/Metabolic History: Reports: None Hematologic History: Reports: None Oncologic (Cancer) History: Reports: None Dermatologic History: Reports: None - Infectious Disease History Infectious Disease History: Reports: Chicken Pox - Past Surgical History Head Surgeries/Procedures: Reports: None HEENT Surgical History: Reports: Tonsillectomy Cardiovascular Surgical History: Reports: None GI Surgical History: Reports: Cholecystectomy Female Surgical History: Reports: Breast Biopsy, Tubal Ligation Other Female Surgeries/Procedures: right breast lumpectomy Social & Family History - Family History Family Medical History: No Pertinent Family History - Tobacco Use Tobacco Use Status *Q: Never Tobacco User - Caffeine Use Caffeine Use: Reports: Coffee, Soda - Recreational Drug Use Recreational Drug Use: No ED ROS GENERAL - Review of Systems Review Of Systems: Comprehensive ROS is negative, except as noted in HPI. ED EXAM, SKIN/RASH Exam: See Below (see dictation) Course - Vital Signs Last Recorded V/S: Last Vital Signs Temp 97.1 F 12/09/20 18:59 Pulse 81 12/09/20 18:59 Resp 18 12/09/20 18:59 BP 125/80 12/09/20 18:59 Pulse Ox 99 12/09/20 18:59 - Orders/Labs/Meds Meds: Medications Discontinued Medications Generic Name Dose Route Start Last Admin Trade Name Freq PRN Reason Stop Dose Admin Bacitracin 1 dose 12/09/20 19:36 12/09/20 19:58 Bacitracin Oint 1 Gm U/D Packet TOP 12/09/20 19:37 1 dose ONETIME ONE Administration Bupivacaine HCl 10 ml 12/09/20 19:15 12/09/20 19:58 Bupivacaine 0.5% 10 Ml Sdv INJECT 12/09/20 19:16 10 ml ONETIME ONE Administration Lidocaine HCl 5 ml 12/09/20 19:15 12/09/20 19:58 Lidocaine 1% 5 Ml Sdv INJECT 12/09/20 19:16 5 ml ONETIME ONE Administration Mupirocin 1 gm 12/09/20 19:15 Mupirocin Oint 22 Gm Tube TOP 12/09/20 19:16 ONETIME ONE Departure - Departure Time of Disposition: 19:31 Disposition: Home, Self-Care 01 Clinical Impression: Nail avulsion - Discharge Information Prescriptions: Mupirocin Oint [Bactroban Oint] 22 gm TOP BID 1 Days #1 tube Instructions: Nail Bed Injury, [id number] Referrals: [facility] [Primary Care Provider] - Forms: ED Department Discharge Additional Instructions: The following information is given to patients seen in the emergency department who are being discharged to home. This information is to outline your options for follow-up care. We provide all patients seen in our emergency department with a follow-up referral. The need for follow-up, as well as the timing and circumstances, are variable depending upon the specifics of your emergency department visit. If you don't have a primary care physician on staff, we will provide you with a referral. We always advise you to contact your personal physician following an emergency department visit to inform them of the circumstance of the visit and for follow-up with them and/or the need for any referrals to a consulting specialist. The emergency department will also refer you to a specialist when appropriate. This referral assures that you have the opportunity for follow-up care with a specialist. All of these measure are taken in an effort to provide you with optimal care, which includes your follow-up. Under all circumstances we always encourage you to contact your private physician who remains a resource for coordinating your care. When calling for follow-up care, please make the office aware that this follow-up is from your recent emergency room visit. If for any reason you are refused follow-up, please contact the [facility] Emergency Department at and asked to speak to the emergency department charge nurse. [facility] [address] [place] [address] [facility] [address] [place] [address] 1. Keep the area clean and dry. Continue to monitor for signs of infection as discussed. Apply sterile dressing with medication for the next 24 hours as discussed. 2. Tylenol and/or ibuprofen as directed and as needed for pain management and discomfort. 3. Please follow-up with your primary care provider as discussed. Return to the ED as needed and as discussed. Sepsis Event Note (ED) - Evaluation Sepsis Screening Result: No Definite Risk - Focused Exam Vital Signs: Vital Signs Temp Pulse Resp BP Pulse Ox 12/09/20 18:59 97.1 F 81 18 125/80 99
[2020-12-09] MEDS ORDERED: Bacitracin Oint 1 GM U/D Packet TOP ONE (19:36)
[2020-12-09 22:11] VITALS: BP 115/77; PULSE 87
== END 2020-12-09 20:15 | disposition home or self-care (01) ==
LOC: MW.ED 18:41
DX: S61.101A Unspecified open wound of right thumb with damage to nail, initial encounter (principal); W23.0XXA Caught, crushed, jammed, or pinched between moving objects, initial encounter
CPT/HCPCS: 11730; 99282; J3490

== ENCOUNTER 2021-03-19 18:39 | Emergency (ER) | payer MEDICAID ==
[2021-03-19] MEDS ORDERED: Benzocaine 20% Topical Spray UD MUCMEM ONE (18:53)
[2021-03-19] MEDS ORDERED: Lidocaine 2% Viscous Solution 15 ML Cup PO ONE (18:53)
--- NOTE | 2021-03-19 18:53 | EDM.PDOC ---
ED HPI GENERAL MEDICAL PROBLEM - General Chief Complaint: ENT Problem Stated Complaint: TOOTHACHE Time Seen by Provider: 03/19/21 18:41 Source of Information: Reports: Patient History Limitations: Reports: No Limitations - History of Present Illness INITIAL COMMENTS - FREE TEXT/NARRATIVE: HISTORY AND PHYSICAL: History of present illness: Patient is a 30-year-old female who presents to the emergency room with complaints of bilateral lower dental pain at #29 and 20. She states she has had chronic dental pain due to some ill fitting crowns. Over the past 1 week she has had increased pain when she bites down on food. She does have an appointment with her dentist on 03/27/21 but "cannot stand the pain". Patient denies any fever, chills, headache, change in vision, syncope or near syncope. Denies any chest pain, back pain, shortness of breath or cough. Denies any GI or symptoms. Patient has been eating and drinking appropriately. Review of systems: As per history of present illness and below otherwise all systems reviewed and negative. Past medical history: As per history of present illness and as reviewed below otherwise noncontributory. Surgical history: As per history of present illness and as reviewed below otherwise noncontributory. Social history: See social history for further information Family history: As per history of present illness and as reviewed below otherwise noncontributory. Physical exam: General: Well developed and well nourished 30-year-old female. Alert and orientated x 3. Nontoxic in appearance and in no acute distress. Vital signs are stable and have been reviewed by me. Nursing notes were reviewed. HEENT: Atraumatic, normocephalic, pupils equal and reactive bilaterally, negative for conjunctival pallor or scleral icterus, mucous membranes moist, TMs normal bilaterally, she does have erythema noted at tooth #20. Throat clear, neck supple, nontender, trachea midline. No drooling or trismus noted. No meningeal signs. No hot potato voice noted. Lungs: Clear to auscultation bilaterally. Chest nontender. Normal work of breathing, no accessory muscles used. Heart: S1S2, regular rate and rhythm Skin: Intact, warm, dry. No lesions or rashes noted. Hematologic: No petechiae or purpra. Mucosa appropriate color and normal nail bed color and refill. Extremities: Atraumatic, moves all extremities per self without difficulty or deficits, negative for cords or calf pain. Neurovascular unremarkable. Neuro: Awake, alert, oriented. Cranial nerves II through XII unremarkable. Cerebellum unremarkable. Motor and sensory unremarkable throughout. Exam nonfocal. Psychiatric: Mood and affect are appropriate. Normal thought process. Answering questions appropriately. Notes: *This patient was seen and evaluated during the 2019 SARS-CoV-2 novel coronavirus pandemic period. Community viral transmission is ongoing at time of this encounter and the emergency department is operating under pandemic response procedures. Patient states that she has an appointment next Tuesday with a dentist but has pain that is not controlled with [id number] medications. She does have redness along the gumline of the affected tooth on the left, could be early dental abscess. I will place her on antibiotics and give her a short course of pain medication. I have talked with the patient about today's findings, in addition to providing specific details for plan of care. Reassessment at the time of disposition demonstrates that the patient is in no acute distress. The patient is stable for discharge, counseling was provided and we discussed in great detail signs and symptoms that would prompt them to return to the Emergency Department. Medication, follow up and supportive care measures were reviewed and discussed. Voices understanding and is agreeable to plan of care. Denies any further questions or concerns at this time. Diagnostics: None Therapeutics: Dental balls Prescription: Tylenol 3, Pen-Vee K Impression: Dentalgia Plan: 1. You were evaluated today on an emergent basis. Please take the medications as directed 2. Tylenol and/or ibuprofen as needed for pain management. "Tooth Balls" have been given to you; apply along the gumline every 2-3 hours as needed. Do not swallow these; external use only. 3. We encourage you to follow up with a dentist for re-evaluation and further care/management. 4. If your symptoms should worsen, new symptoms develop or any of the signs and symptoms we discussed should arise please return to the emergency room or call 911 (if needed). Definitive disposition and diagnosis as appropriate pending reevaluation and review of above. - Related Data Allergies Allergy/AdvReac Type Severity Reaction Status Date / Time No Known Allergies Allergy Verified 03/19/21 18:55 Home Meds: Home Meds Acetaminophen/Codeine [Tylenol with Codeine No.3 300MG/30MG] 1 tab PO Q4H PRN #15 tab 03/19/21 [Rx] Penicillin V Potassium 500 mg PO BID 10 Days #20 tab 03/19/21 [Rx] Past Medical History - Past Health History Medical/Surgical History: Denies Medical/Surgical History HEENT History: Reports: None Cardiovascular History: Reports: None Respiratory History: Reports: None Gastrointestinal History: Reports: Cholelithiasis, Other (See Below) Other Gastrointestinal History: RUQ pain Genitourinary History: Reports: None [employer] History: Reports: Musculoskeletal History: Reports: None Neurological History: Reports: Migraines Psychiatric History: Reports: Anxiety Endocrine/Metabolic History: Reports: None Hematologic History: Reports: None Oncologic (Cancer) History: Reports: None Dermatologic History: Reports: None - Infectious Disease History Infectious Disease History: Reports: Chicken Pox - Past Surgical History Head Surgeries/Procedures: Reports: None HEENT Surgical History: Reports: Tonsillectomy Cardiovascular Surgical History: Reports: None GI Surgical History: Reports: Cholecystectomy Female Surgical History: Reports: Breast Biopsy, Tubal Ligation Other Female Surgeries/Procedures: right breast lumpectomy Social & Family History - Family History Family Medical History: No Pertinent Family History - Caffeine Use Caffeine Use: Reports: Coffee, Soda ED ROS ENT - Review of Systems Review Of Systems: Comprehensive ROS is negative, except as noted in HPI. ED EXAM, ENT - Physical Exam Exam: See Below (See dictation) Course - Orders/Labs/Meds Meds: Medications Discontinued Medications Generic Name Dose Route Start Last Admin Trade Name Freq PRN Reason Stop Dose Admin Benzocaine 2 each 03/19/21 18:53 Benzocaine 20% Topical [place] Ud MUCMEM 03/19/21 18:54 ONETIME ONE Lidocaine HCl 15 ml 03/19/21 18:53 Lidocaine 2% Viscous Solution 15 Ml Cup PO 03/19/21 18:54 ONETIME ONE Departure - Departure Time of Disposition: 19:03 Disposition: Home, Self-Care 01 Clinical Impression: Dentalgia - Discharge Information Prescriptions: Penicillin V Potassium 500 mg PO BID 10 Days #20 tab Acetaminophen/Codeine [Tylenol with Codeine No.3 300MG/30MG] 1 tab PO Q4H PRN #15 tab PRN Reason: Pain Referrals: PCP,None [Primary Care Provider] - Forms: ED Department Discharge Additional Instructions: The following information is given to patients seen in the emergency department who are being discharged to home. This information is to outline your options for follow-up care. We provide all patients seen in our emergency department with a follow-up referral. The need for follow-up, as well as the timing and circumstances, are variable depending upon the specifics of your emergency department visit. If you don't have a primary care physician on staff, we will provide you with a referral. We always advise you to contact your personal physician following an emergency department visit to inform them of the circumstance of the visit and for follow-up with them and/or the need for any referrals to a consulting specialist. The emergency department will also refer you to a specialist when appropriate. This referral assures that you have the opportunity for follow-up care with a specialist. All of these measure are taken in an effort to provide you with opti mal care, which includes your follow-up. Under all circumstances we always encourage you to contact your private physician who remains a resource for coordinating your care. When calling for follow-up care, please make the office aware that this follow-up is from your recent emergency room visit. If for any reason you are refused follow-up, please contact the [facility] at and asked to speak to the emergency department charge nurse. [facility] [address] [place] [id number] [place] [address] Thank you for choosing the [facility] emergency department in [place] for your medical needs today. It was a pleasure caring for you. Today you were seen in the emergency department for dental pain. 1. You were evaluated today on an emergent basis. Please take the medications as directed 2. Tylenol and/or ibuprofen as needed for pain management. "Tooth Balls" have been given to you; apply along the gumline every 2-3 hours as needed. Do not swallow these; external use only. 3. We encourage you to follow up with a dentist for re-evaluation and further care/management. 4. If your symptoms should worsen, new symptoms develop or any of the signs and symptoms we discussed should arise please return to the emergency room or call 911 (if needed).
[2021-03-19 19:00] VITALS: BP 128/77; PULSE 95
== END 2021-03-19 19:22 | disposition home or self-care (01) ==
LOC: MW.ED 18:39
DX: K08.89 Other specified disorders of teeth and supporting structures (principal)
CPT/HCPCS: 99282; A9270